=== PATIENT | male | born 1960 | race Caucasian/White ===

== ENCOUNTER 2018-04-12 13:09 | Inpatient (IN) ==
--- NOTE | 2018-04-12 13:44 | ED ---
HPI General Chief Complaint: Overdose Stated Complaint: overdose Time Seen by Provider: 04/12/18 13:25 Source: EMS Mode of arrival: EMS Limitations: no limitations and altered mental status History of Present Illness HPI Narrative: Patient is a 57-year-old male who is brought to the emergency room via EMS after he had a heroin drug overdose. Patient admitted to using IV heroin today, his friend found him unresponsive in his tent. When EMS arrived on scene, he had agonal respirations, bagged mouth ventilation was performed. When an IV line was estabilished, he was given narcan 0.4 mg IV. Patient became alert and oriented x 3, denies si/hi. Related Data Home Medications Medication Instructions Recorded Confirmed No Known Home Medications 01/01/18 04/12/18 Allergies Allergy/AdvReac Type Severity Reaction Status Date / Time No Known Allergies Allergy Verified 04/12/18 13:20 Review of Systems ROS: all other systems reviewed are negative [facility] Medical History Medical History COPD (chronic obstructive pulmonary disease) (Acute) Daily consumption of alcohol (Acute) Hepatitis C (Acute) Hypertension (Acute) IV drug abuse (Acute) Torn meniscus (Acute) Social History Social History Substance History: Active Abuse Second Hand Smoke Exposure: Yes Smoking Status: Current every day smoker Tobacco Type: Cigarettes How Often Do You Have a Drink Containing Alcohol: 4 or more times a week Recent Travel in [facility] within the Last 8 Weeks: No Recent Out of Country Travel within the Last 8 Weeks: No Substance Abuse Detail Heroin: Substance Use Status: Active Immunization History Tetanus Immunization: Unsure Exam Narrative Exam Narrative: GENERAL: Mild distress, disheveled appearing SKIN: Focused skin assessment warm/dry. HEAD: Atraumatic. Normocephalic. EYES: Pupils equal and round. No scleral icterus. No injection or drainage. ENT: No nasal bleeding or discharge. Mucous membranes pink and moist. NECK: Trachea midline. No JVD. CARDIOVASCULAR: Regular rate and rhythm. No murmur appreciated. RESPIRATORY: No accessory muscle use. Clear to auscultation. Breath sounds equal bilaterally. GASTROINTESTINAL: Abdomen soft, non-tender, nondistended. Hepatic and splenic margins not palpable. MUSCULOSKELETAL: No obvious deformities. No clubbing. No cyanosis. No edema. NEUROLOGICAL: Awake and alert. No obvious cranial nerve deficits. Motor grossly within normal limits. Normal speech. PSYCHIATRIC:Flat mood and affect; insight and judgment normal, denies si/hi Course Reevaluation(s) Reevaluation #1: Patient re-evaluated, patient apneic and difficult to arouse, he currently is requiring another dose of narcan 0.4mg Time: 14:44 Initial Documented Vital Signs Pulse Rate 98 H 04/12/18 13:11 Respiratory Rate 25 H 04/12/18 13:11 Blood Pressure 136/79 04/12/18 13:11 Pulse Oximetry 98 04/12/18 13:11 Last Documented Vital Signs Pulse Rate 77 04/12/18 15:20 Respiratory Rate 20 04/12/18 15:20 Blood Pressure 118/75 04/12/18 15:20 Pulse Oximetry 99 04/12/18 15:20 Critical Care Time Critical Care Time: Yes Total Critical Care Time: 30 Attestation: Aggregate critical care time was 30 minutes. Time to perform other separately billable procedures was not included in the critical care time. My time did not include minutes spent treating any other patients simultaneously or on activities that did not directly contribute to the patient's treatment. The services I provided to this patient were to treat and/or prevent clinically significant deterioration that could result in: , permanent disability, acute respiratory failure, worsening clinical condition, anoxic brain injury I provided critical care services requiring my management, as noted below: Chart data review, documentation time, medication orders and management, vital sign assessments/reviewing monitor data, ordering and reviewing lab tests, ordering and interpreting/reviewing x-rays and diagnostic studies, care of the patient and discussion of the patient with the admitting physicians. Sign Out Sign Out Data: Patient Sign Out occurred on 04/12/18 at 15:16. Patient's care was discussed, and care was transferred from Catherine Esquivel to Fredis Myles MD. Sign Out Comment: Patient signed out to Dr. Myles at change of shift, patient is an accidental heroin overdose. He received a dose of narcan by ems as well as in the ER. plan for observation, he will require admission if he requires another dose of narcan. Last updated by Catherine Esquivel at 04/12/18 14:48 Post-Handoff Eval: The patient was signed out to me at the beginning of my shift at approximately 3 :00 PM. Please refer to previous provider notes. This is a 57-year-old male who presents by ambulance for an apparent unintentional heroin overdose. On scene the patient was apneic with depressed mental status. IV was established, and the patient received 0.4 mg of IV Narcan by EMS with improvement in mentation and respiratory status. Just prior to signout the patient required another dose of 0.4 mg of IV Narcan. On my assessment the patient is with depressed mental status, breathing at a rate of about 10 breaths/min, protecting his airway, arouses to verbal and painful stimuli, moves all extremities, admits to unintentionally overdosing on heroin. He denies any other illicit drugs. He denies alcohol. He denies any physical complaints. About an hour after signout the patient's mentation gradually declined. He is still arousable to verbal stimuli, however has significantly depressed mental status, breathing at a rate of about 10 breaths/ min. Pupils are pinpoint. No signs of trauma. ABG on 4 L nasal cannula shows pH 7.26, PCO2 62, PO2 95, carboxyhemoglobin 6.2%. Basic labs will be performed , CT head will be performed, and the patient will be started on a Narcan drip. 4:15 PM: The patient was evaluated at the bedside by marketing development specialist Dr. Machado who will admit the patient to the marketing development specialist service. Labs and CT head pending at time of admission. Medical Decision Making MDM Narrative Medical decision making narrative: During the course of the patients emergency department visit, the patients history, examination, and differential diagnosis were reviewed with the patient. The patient was placed on a patient monitor with oximetry and frequent blood pressure monitoring. The patient had an IV access obtained, IVF administered The patient was initially provided with iv narcan 0.4 by ems. Plan to observe patient Patient denies si/hi - plan to observe patient Medical Screen Exam Complete: Yes Emergency Medical Condition: Yes Differential Diagnosis Differential Diagnosis: drug overdose Lab Data Lab Results 04/12/18 Range/Units 15:37 Puncture Site Right radial Patient Temperature 98.6 O2 Saturation 91 (90-100) % ABG pH 7.26 L* (7.380-7.420) ABG pCO2 62 H* (38-42) mmHg ABG pO2 95 (61-120) mmHg ABG HCO3 27 H (22-26) mmol/L ABG O2 Content 14.7 (12.0-20.0) Vol % ABG Base Excess 0.4 (-2-2) mmol/L ABG Methemoglobin 0.6 (0-2) % Manuel Test Present Hemoglobin 11.5 L (12.0-16.0) G/DL Carboxyhemoglobin 6.2 H* (0-4) % O2 Delivery Device Nasal cannula Liter Flow 4.00 L/M Critical Value Yes Discharge Plan Discharge Disposition Patient Disposition: 30 Still Patient Discharge Condition Condition: Fair Discharge Details Diagnosis: Drug overdose, Altered mental status Physicians Team ED Provider: Fredis Myles Primary Care Provider: Primary Care Enid Infante Rxs /Orders / Referrals /Forms Prescriptions: No Action No Known Home Medications RF: 0 Discharge Instructions Print Language: German Patient Printed Instructions: Adult Overdose (ED) Additional Instructions: Stop using drugs! Follow up with your primary care doctor Return to the ER as needed Discharge Interventions Interventions: Vital Signs Last Done: 04/12/18 15:20 Status ED Status: With Doctor
[2018-04-12] MEDS: Sod Chloride 0.9% Inj 1,000 ML IV.SIG SCH ×2 (14:10→15:10)
[2018-04-12] MEDS ORDERED: Naloxone Inj 0.4 MG/ML Vial IV.PUSH ONE ×2 (14:39→15:56)
[2018-04-12 16:11] LABS: ABG Base Excess 0.4 mmol/L (-2-2); ABG PCO2 62 mmHg (38-42); ABG PO2 95 mmHg (61-120)
--- NOTE | 2018-04-12 16:37 | CT ---
EXAM DATE: 04/12/2018 4:03 PM EDT AGE/SEX: 57 years / Male INDICATIONS: Altered Mental Status CLINICAL DATA: This is the patient's initial encounter. Patient reports that signs and symptoms have been present for 1 day and indicates a pain score of 0/10. MEDICAL/SURGICAL HISTORY: Chronic obstructive pulmonary disease. Hepatitis C. Hypertension. None. RADIATION DOSE: 38.61 CTDI (mGy) COMPARISON: No prior exams available for comparison. TECHNIQUE: CT of the head without contrast. Using automated exposure control and adjustment of the mA and/or kV according to patient size, radiation dose was kept as low as reasonably achievable to ob tain optimal diagnostic quality images. DICOM format image data is available electronically for revi ew and comparison. FINDINGS: Cerebrum: The ventricles are normal for age. No evidence of midline shift, mass lesion, hemorrhage or acute infarction. No extraaxial fluid collections are seen. Posterior Fossa: The cerebellum and brainstem are intact. The 4th ventricle is midline. The cerebe llopontine angle is unremarkable. Extracranial: The visualized portion of the orbits is intact. Skull: The calvaria is intact. No evidence of skull fracture. CONCLUSION: 1. Negative CT Head non contrast. . Electronically signed by: Jason Hartmann MD 04/12/2018 4:35 PM EDT
[2018-04-12] MEDS ORDERED: Bisacodyl 10 MG Supp RECTAL PRN (17:00)
[2018-04-12] MEDS ORDERED: Sodium Phosphate Inj 30 MMOL in Sodium Chlor 0.9% Inj 250 ML IV.SIG PRN (17:00)
[2018-04-12] MEDS ORDERED: Potassium Chlor 40 mEq Premix 40 MEQ/100 ML PIGGYBACK IV.SIG PRN ×2 (17:00)
[2018-04-12] MEDS ORDERED: Magnesium Sulfate Inj 4 GM in Sodium Chlor 0.9% Inj 92 ML IV.SIG PRN (17:00)
[2018-04-12] MEDS ORDERED: Potassium Phosphate Inj 30 MMOL in Sodium Chlor 0.9% Inj 250 ML IV.SIG PRN (17:00)
[2018-04-12] MEDS ORDERED: Potassium Chloride 25 MEQ Effervescent Tablet PO PRN (17:00)
[2018-04-12] MEDS ORDERED: Potassium Phosphate 500 MG Soluble Tablet PO PRN (17:00)
[2018-04-12] MEDS ORDERED: Magnesium Sulfate Inj 2 GM in Sodium Chlor 0.9% Inj 96 ML IV.SIG PRN (17:00)
[2018-04-12] MEDS ORDERED: Potassium Chlor 20 mEq Premix 20 MEQ/100 ML PIGGYBACK IV.SIG PRN ×2 (17:00)
[2018-04-12] MEDS ORDERED: Magnesium Oxide 400 MG Tablet PO PRN (17:00)
--- NOTE | 2018-04-12 17:09 | P.HPCC ---
History of Present Illness Service: Critical Care Medicine Primary Care Physician: No Primary Care Physician History of Present Illness: 57yM known iv opiate abuse patient presents with acute altered mentation and pin -point pupils. given iv narcan with improved mental status, but then has progressively become somnolent again. second dose of narcan again with good effect, but then somnolent again. started on naloxone infusion. on my evaluation , patient moves all extremities and purposeful to noxious stimuli, non-focal, but very somnolent, bradypneic, with pin-point pupils. ABG consistent with acute respiratory acidosis. ROS unobtainable. Inpatient Certification: I certify that the inpatient services were ordered in accordance with Medicare regulations governing the order. This includes certification that hospital inpatient services are reasonable and necessary and in the case of services not specified as inpatient-only under 42 CFR 419.22(n), that they are appropriately provided as inpatient services in accordance to with the 2-midnight benchmark under 43 CFR 412.3(e) Estimated Total Length of Stay (Days): 4 Plans for Post Hospital Care: Not yet determined Review of Systems unobtainable due to mental status PMFSH - History History Provided By: Medical Record - Medical / Surgical Hx Neg / Unobtainable Medical Problems Denied: Unable to Obtain Surgical History: Unable to Obtain - Medical History Medical History: Medical History (Last Reviewed 04/12/18 @ 17:05 by Yandel Machado MD) COPD (chronic obstructive pulmonary disease) Daily consumption of alcohol Hepatitis C Hypertension IV drug abuse Torn meniscus - Social History I have reviewed the patient's Social History: Yes - Tobacco History Second Hand Smoke Exposure: Yes Tobacco Use In Past 30 Days: Yes Smoking Status: Current every day smoker Tobacco Type: Cigarettes - Alcohol History How Often Do You Have a Drink Containing Alcohol: 4 or more times a week - Substance Use History Substance History: Active Abuse - Substance Use Type Heroin Status: Active - Travel History Recent Travel in the [place] Within the Last 8 Weeks: No Recent Travel Out of the Country Within the Last 8 Weeks: No - Immunization History Tetanus Immunization: Unsure Medications and Allergies Active Medications: Active Medications Sodium Chloride (Ns Inj) 1,000 mls @ 0 mls/hr IV.SIG BOLUS [facility] Stop: 04/13/18 13:46 Last Infusion: 04/12/18 16:39 Dose: Infused Naloxone HCl 4 mg/ Dextrose 250 mls @ 12.5 mls/hr IV.CONT TITRATE PRN; Protocol PRN Reason: Ordered RASS Sodium Chloride (Ns Flush) 2 ml IV.FLUSH PRN PRN PRN Reason: FLUSH AFTER USING IV ACCESS Allergies Allergy/AdvReac Type Severity Reaction Status Date / Time No Known Allergies Allergy Verified 04/12/18 13:20 Home Medications Medication Instructions Recorded Confirmed Type No Known Home Medications 01/01/18 04/12/18 History Results - Imaging Impressions Head CT 04/12/18 15:57 CONCLUSION: 1. Negative CT Head non contrast. . Exam Vital signs: Vital Signs 04/12/18 13:11 04/12/18 13:15 04/12/18 13:26 Pulse Rate 98 H 93 H 82 Respiratory Rate 25 H 16 14 Blood Pressure 136/79 136/79 132/77 Pulse Oximetry 98 98 97 04/12/18 14:10 04/12/18 14:41 04/12/18 15:20 Pulse Rate 80 84 77 Respiratory Rate 22 20 Blood Pressure 116/63 118/75 Pulse Oximetry 96 100 99 Intake & Output 04/11/18 04/12/18 04/12/18 18:59 06:59 18:59 Intake Total 1999 Balance 1999 Weight 95.254 kg Intake: IV 1999 NS Inj 1,000 ML @ Wide Open IV. 1999 SIG BOLUS [facility] Rx#:[id number] Narrative: GENERAL: Middle-age male who appears much older than stated age, lying in bed, very somnolent, only arousable to deep sternal rub HEENT: Normocephalic. Atraumatic. Pupils pinpoint, equal, round, reactive, conjugate. Mucous membranes are moist NECK: Trachea is midline. There is no JVD. CHEST: Bradypneic. equal chest rise. clear. CARDIOVASCULAR: Normal rate, rhythm. Sinus. ABDOMEN: Soft, nontender, nondistended. No guarding. MUSCULOSKELETAL: Pulses 2+. No peripheral edema. Multiple small areas of scabbing concerning for small peripheral abscesses in various stages of healing. Small linear scars in the upper extremities concerning for track prado. NEUROLOGICAL: RASS -3/-4. Arouses to deep sternal rub. Protect airway. Positive cough. Positive gag. Purposeful when aroused. Withdraws x4. Does not follow commands. Caprini VTE Risk Assessment Caprini VTE Risk Assessment: Moderate/High Risk (score >= 2) Caprini Risk Assessment Model: Point Value = 1 Point Value = 2 Point Value = 3 Point Value = 5 Age 41-60 Minor surgery BMI > 25 kg/m2 Swollen legs Varicose veins or History of unexplained or recurrent spontaneous Oral contraceptives or hormone replacement Sepsis (< 1 month) Serious lung disease, including pneumonia (< 1 month) Abnormal pulmonary function Acute myocardial infarction Congestive heart failure (< 1 month) History of inflammatory bowel disease Medical patient at bed rest Age 61-74 Arthroscopic surgery Major open surgery (> 45 min) Laparoscopic surgery (> 45 min) Malignancy Confined to bed (> 72 hours) Immobilizing plaster cast Central venous access Age >= 75 History of VTE Family history of VTE Factor V Leiden Prothrombin [id number] Lupus anticoagulant Anticardiolipin antibodies Elevated serum homocysteine Heparin-induced thrombocytopenia Other congenital or acquired thrombophilia Stroke (< 1 month) Elective arthroplasty Hip, pelvis, or leg fracture Acute spinal cord injury (< 1 month) Prophylaxis Regimen: Total Risk Factor Score Risk Level Prophylaxis Regimen 0-1 Low Early ambulation 2 Moderate Order ONE of the following: *Sequential Compression Device (SCD) *Heparin 5000 units SQ BID 3-4 Higher Order ONE of the following medications: *Heparin 5000 units SQ TID *Enoxaparin/Lovenox 40 mg SQ daily (WT < 150 kg, CrCl > 30 mL/min) *Enoxaparin/Lovenox 30 mg SQ daily (WT < 150 kg, CrCl > 10-29 mL/min) *Enoxaparin/Lovenox 30 mg SQ BID (WT < 150 kg, CrCl > 30 mL/min) AND/OR *Sequential Compression Device (SCD) 5 or more Highest Order ONE of the following medications: *Heparin 5000 units SQ TID (Preferred with Epidurals) *Enoxaparin/Lovenox 40 mg SQ daily (WT < 150 kg, CrCl > 30 mL/min) *Enoxaparin/Lovenox 30 mg SQ daily (WT < 150 kg, CrCl > 10-29 mL/min) *Enoxaparin/Lovenox 30 mg SQ BID (WT < 150 kg, CrCl > 30 mL/min) AND *Sequential Compression Device (SCD) Assessment and Plan - Assessment and Plan Plan: Assessment: 57-year-old male with acute toxic encephalopathy secondary to what appears to be IV opiate overdose. Agree with admit to ICU for naloxone infusion. Active Problems: Acute toxic encephalopathy Acute opiate overdose Opiate dependence IV drug abuse Acute respiratory acidosis Acute hypoxic and hypercarbic respiratory distress Plan: admit to ICU naloxone drip urine drug screen f/u tylenol, ASA levels frequent neuro checks thiamine, MVI mivf LR @ 84 cc/hr CBC, CMP, coag, mag, phos, lactic acid head CT negative for acute disease watch for signs of opiate withdraw. if mental status improves, can advance diet SCDs lovenox pepcid po
[2018-04-12 17:29] LABS: Baso # (Auto) 0.1 th/mm3 (0.0-0.2); Baso % (Auto) 0.3 % (0.0-2.0); Eos # (Auto) 0.3 th/mm3 (0.0-0.4); Eos % (Auto) 1.5 % (0.0-4.0); Hematocrit 34.6 % (39.0-51.0); Hemoglobin 11.6 gm/dL (13.0-17.0); Mean Corpuscular HGB Conc 33.4 % (32.0-36.0); Mean Corpuscular Hemoglobin 33.1 pg (27.0-34.0); Mono # (Auto) 0.9 th/mm3 (0.0-0.9); Mono % (Auto) 5.2 % (0.0-8.0); Neut # (Auto) 14.9 th/mm3 (1.8-7.7); Platelet Count 143 th/mm3 (150-450); Red Blood Count 3.49 mil/mm3 (4.50-5.90); Red Cell Distribution Width 15.3 % (11.6-17.2); White Blood Count 17.1 th/mm3 (4.0-11.0)
[2018-04-12 17:38] LABS: INR 1.1 Ratio; Prothrombin Time 11.2 sec (9.8-11.6)
[2018-04-12 17:54] LABS: Albumin 2.6 g/dL (3.4-5.0); Anion Gap 2 meq/L (5-15); Aspartate Aminotransferase 25 U/L (15-37); Blood Urea Nitrogen 19 mg/dL (7-18); Calcium 7.5 mg/dL (8.5-10.1); Carbon Dioxide 29.4 meq/L (21.0-32.0); Chloride 110 meq/L (98-107); Glomerular Filtration Rate Greater Than 89 mL/min (>89); Glucose,Random 98 mg/dL (74-106); Magnesium 2.1 mg/dL (1.5-2.5); Sodium 141 meq/L (136-145)
[2018-04-12 18:03] LABS: Alanine Aminotransferase 18 U/L (12-78); Alkaline Phosphatase 80 U/L (45-117); Phosphorus 2.8 mg/dL (2.5-4.9); Thyroid Stimulating Hormone 0.672 uIU/mL (0.358-3.740); Total Protein 5.9 g/dL (6.4-8.2)
[2018-04-12 18:23] LABS: Creatine Kinase 87 U/L (39-308)
[2018-04-12] MEDS: Enoxaparin Inj 40 MG/0.4 ML Syringe SQ SCH (19:46)
[2018-04-12] MEDS: Multivitamin Inj 10 ML, Thiamine Inj 100 MG, Folic Acid Inj 1 MG in Sodium Chlor 0.9% I... IV.SIG SCH (21:18)
[2018-04-12] MEDS: Polyethylene Glycol 3350 17 GM Packet PO SCH (21:52)
[2018-04-12] MEDS: Famotidine 20 MG Tablet PO SCH (21:52)
[2018-04-12] MEDS: Senna/Docusate Sodium 8.6/50 MG Tablet PO SCH (21:52)
[2018-04-13] MEDS: Chlorhexidine Gluconate 2% 1 Pack (2 Cloths) TOPICAL SCH (03:55)
[2018-04-13] MEDS ORDERED: Chlorhexidine Gluconate 2% 1 Pack (2 Cloths) TOPICAL PRN (04:00)
[2018-04-13 04:50] LABS: ABG Base Excess 1.4 mmol/L (-2-2); ABG PCO2 42 mmHg (38-42); ABG PO2 58 mmHG (61-120)
[2018-04-13 06:40] LABS: Baso # (Auto) 0.1 th/mm3 (0.0-0.2); Baso % (Auto) 0.5 % (0.0-2.0); Eos # (Auto) 0.4 th/mm3 (0.0-0.4); Eos % (Auto) 2.9 % (0.0-4.0); Hematocrit 35.3 % (39.0-51.0); Hemoglobin 11.6 gm/dL (13.0-17.0); Lymph # (Auto) 1.4 th/mm3 (1.0-4.8); Lymph % (Auto) 10.8 % (9.0-44.0); Mean Corpuscular HGB Conc 32.8 % (32.0-36.0); Mean Corpuscular Hemoglobin 32.9 pg (27.0-34.0); Mean Corpuscular Volume 100.3 fL (80.0-100.0); Mean Platelet Volume 8.8 fL (7.0-11.0); Mono # (Auto) 0.6 th/mm3 (0.0-0.9); Mono % (Auto) 4.9 % (0.0-8.0); Neut # (Auto) 10.5 th/mm3 (1.8-7.7); Neut % (Auto) 80.9 % (16.0-70.0); Platelet Count 132 th/mm3 (150-450); Red Blood Count 3.52 mil/mm3 (4.50-5.90); Red Cell Distribution Width 15.4 % (11.6-17.2)
[2018-04-13 07:12] LABS: Magnesium 1.9 mg/dL (1.5-2.5); Phosphorus 2.1 mg/dL (2.5-4.9)
[2018-04-13] MEDS: Senna/Docusate Sodium 8.6/50 MG Tablet PO SCH ×2 (08:21→20:17)
[2018-04-13] MEDS: Enoxaparin Inj 40 MG/0.4 ML Syringe SQ SCH (08:21)
[2018-04-13] MEDS: Famotidine 20 MG Tablet PO SCH ×2 (08:22→20:16)
[2018-04-13] MEDS: Polyethylene Glycol 3350 17 GM Packet PO SCH ×2 (08:22→20:16)
[2018-04-13] MEDS: Potassium Phosphate 500 MG Soluble Tablet PO PRN ×4 (08:55→23:38)
--- NOTE | 2018-04-13 09:43 | P.PNCC ---
Subjective Subjective Remarks/Hospital Course: 04/12: 57yM known iv opiate abuse patient presents with acute altered mentation and pin-point pupils. given iv narcan with improved mental status, but then has progressively become somnolent again. second dose of narcan again with good effect, but then somnolent again. started on naloxone infusion. on my evaluation , patient moves all extremities and purposeful to noxious stimuli, non-focal, but very somnolent, bradypneic, with pin-point pupils. ABG consistent with acute respiratory acidosis. ROS unobtainable. 04/13: Narcan drip stopped this morning. Drowsy, easily arousable, knows he is in the hospital. Knows it is March 2018. Objective Vital Signs / I&O: Vital Signs 04/12/18 13:11 04/12/18 13:15 04/12/18 13:26 Temperature Pulse Rate 98 H 93 H 82 Respiratory Rate 25 H 16 14 Blood Pressure 136/79 136/79 132/77 Pulse Oximetry 98 98 97 04/12/18 14:10 04/12/18 14:41 04/12/18 15:20 Temperature Pulse Rate 80 84 77 Respiratory Rate 22 20 Blood Pressure 116/63 118/75 Pulse Oximetry 96 100 99 04/12/18 17:10 04/12/18 18:48 04/12/18 19:26 Temperature 96.4 F L Pulse Rate 75 78 69 Respiratory Rate 12 16 16 Blood Pressure 106/55 L 109/69 Pulse Oximetry 95 96 98 04/12/18 20:00 04/12/18 21:00 04/12/18 22:00 Temperature 96.7 F L Pulse Rate 66 62 62 Respiratory Rate 16 14 16 Blood Pressure 96/65 L 106/68 98/62 L Pulse Oximetry 100 99 100 04/12/18 23:00 04/13/18 00:00 04/13/18 01:00 Temperature 98.0 F Pulse Rate 62 65 66 Respiratory Rate 17 18 16 Blood Pressure 106/69 104/70 105/66 Pulse Oximetry 99 98 96 04/13/18 02:00 04/13/18 03:00 04/13/18 04:00 Temperature 98.3 F Pulse Rate 62 66 69 Respiratory Rate 19 29 H 20 Blood Pressure 107/71 125/69 120/77 Pulse Oximetry 94 L 96 98 04/13/18 04:57 04/13/18 05:00 04/13/18 06:00 Temperature Pulse Rate 59 L 56 L 53 L Respiratory Rate 20 18 16 Blood Pressure 137/75 140/73 Pulse Oximetry 95 97 04/13/18 07:00 04/13/18 08:00 04/13/18 08:05 Temperature 98.4 F Pulse Rate 55 L 48 L Respiratory Rate 23 29 H Blood Pressure 120/89 117/83 Pulse Oximetry 97 94 L 97 04/13/18 08:10 04/13/18 09:00 Temperature Pulse Rate 52 L 55 L Respiratory Rate 23 15 Blood Pressure 117/78 Pulse Oximetry 97 Intake & Output 04/12/18 04/13/18 04/13/18 18:59 06:59 18:59 Intake Total 1999 1511.2 / 1511.2 Output Total 750 / 750 Balance 1999 761.2 / 761.2 Weight 95.254 kg 86.6 kg Intake: IV 1999 1511.2 / 1511.2 LR 1000 mL Inj 1,000 ML @ 84 1000 / 1000 mls/hr IV.CONT .[id number] [facility] Rx# :[id number] MVI-12 Inj 10 ML Thiamine Inj 511.2 / 511.2 100 MG Folvite Inj 1 MG In NS Inj 500 ML @ 125 mls/hr IV.SIG Q24H [facility] Rx#:[id number] NS Inj 1,000 ML @ Wide Open IV. 1999 SIG BOLUS [facility] Rx#:[id number] Oral 0 / 0 Output: Urine 750 / 750 Other: # Incontinent Voids 3 Result Diagrams: 04/13/18 05:20 04/12/18 16:50 Objective Remarks: GENERAL: Middle-age male who appears much older than stated age, lying in bed, very somnolent, only arousable to deep sternal rub HEENT: Normocephalic. Atraumatic. Pupils pinpoint, equal, round, reactive, conjugate. Mucous membranes are moist NECK: Trachea is midline. There is no JVD. CHEST: Bradypneic. equal chest rise. clear. CARDIOVASCULAR: Normal rate, rhythm. Sinus. ABDOMEN: Soft, nontender, nondistended. No guarding. MUSCULOSKELETAL: Pulses 2+. No peripheral edema. Multiple small areas of scabbing concerning for small peripheral abscesses in various stages of healing. Small linear scars in the upper extremities concerning for track prado. NEUROLOGICAL: Drowsy, easily arousable, oriented x3 moving all 4 extremities, following commands. Assessment and Plan - Assessment and Plan Plan: Assessment: 57-year-old male with acute toxic encephalopathy secondary to what appears to be IV opiate overdose. Active Problems: Acute toxic encephalopathy Acute opiate overdose Opiate dependence IV drug abuse Acute respiratory acidosis Acute hypoxic and hypercarbic respiratory distress Plan: Stop naloxone drip this morning and follow neuro status frequent neuro checks thiamine, MVI mivf LR @ 84 cc/hr head CT negative for acute disease watch for signs of opiate withdraw. if mental status improves, can advance diet SCDs lovenox pepcid po Consult and transfer to hospitalist service for further medical management
[2018-04-13 18:55] LABS: Potassium 3.7 meq/L (3.5-5.1)
[2018-04-13] MEDS: Multivitamin Inj 10 ML, Thiamine Inj 100 MG, Folic Acid Inj 1 MG in Sodium Chlor 0.9% I... IV.SIG SCH (20:15)
--- NOTE | 2018-04-13 20:41 | ECG ---
Date Performed: 04/12/2018 Time Performed: 13:12:29 PTAGE: 57 years EKG: Sinus rhythm POSSIBLE LEFT ATRIAL ENLARGEMENT LEFT ANTERIOR FASCICULAR BLOCK ABNORMAL ECG PREVIOUS TRACING : 01/01/2018 22.15 Since the previous tracing, no significant change noted DOCTOR: Evonne Mallory Interpretating Date/Time 04/13/2018 20:40:39
[2018-04-14] MEDS: Chlorhexidine Gluconate 2% 1 Pack (2 Cloths) TOPICAL SCH (03:23)
[2018-04-14 05:00] LABS: ABG Base Excess 3.4 mmol/L (-2-2); ABG PCO2 39 mmHg (38-42); ABG PO2 73 mmHG (61-120)
[2018-04-14] MEDS: Enoxaparin Inj 40 MG/0.4 ML Syringe SQ SCH (08:11)
[2018-04-14] MEDS: Senna/Docusate Sodium 8.6/50 MG Tablet PO SCH ×2 (08:12→20:03)
[2018-04-14] MEDS: Famotidine 20 MG Tablet PO SCH ×2 (08:12→20:03)
[2018-04-14] MEDS: Polyethylene Glycol 3350 17 GM Packet PO SCH ×2 (08:15→20:02)
[2018-04-14 14:54] LABS: Anion Gap 8 meq/L (5-15); Blood Urea Nitrogen 8 mg/dL (7-18); Calcium 7.6 mg/dL (8.5-10.1); Carbon Dioxide 24.9 meq/L (21.0-32.0); Chloride 108 meq/L (98-107); Glomerular Filtration Rate Greater Than 89 mL/min (>89); Glucose,Random 134 mg/dL (74-106); Magnesium 1.7 mg/dL (1.5-2.5); Phosphorus 2.5 mg/dL (2.5-4.9); Potassium 3.7 meq/L (3.5-5.1)
[2018-04-14 14:55] LABS: Sodium 141 meq/L (136-145)
[2018-04-14] MEDS ORDERED: Mag Sulf 1 gm/100 ml Premix 100 ML IV.SIG ONE (15:16)
--- NOTE | 2018-04-14 15:18 | P.PN ---
Subjective Interval history: Logistic Specialist Notes: 04/12: 57yM known iv opiate abuse patient presents with acute altered mentation and pin-point pupils. given iv narcan with improved mental status, but then has progressively become somnolent again. second dose of narcan again with good effect, but then somnolent again. started on naloxone infusion. on my evaluation , patient moves all extremities and purposeful to noxious stimuli, non-focal, but very somnolent, bradypneic, with pin-point pupils. ABG consistent with acute respiratory acidosis. ROS unobtainable. 04/13: Narcan drip stopped this morning. Drowsy, easily arousable, knows he is in the hospital. Knows it is March 2018. Hospitalist Notes: 04/14: Physical Exam Vital signs: Vital Signs 04/13/18 15:00 04/13/18 16:00 04/13/18 17:00 Temperature 98.7 F Pulse Rate 62 89 80 Respiratory Rate 20 23 21 Blood Pressure 138/74 102/59 L 111/56 L Pulse Oximetry 95 95 89 L 04/13/18 17:53 04/13/18 18:00 04/13/18 19:00 Temperature Pulse Rate 80 80 80 Respiratory Rate 22 15 Blood Pressure 120/68 117/69 Pulse Oximetry 94 L 94 L 04/13/18 19:42 04/13/18 20:00 04/13/18 20:03 Temperature 99 F Pulse Rate 79 79 Respiratory Rate 16 16 Blood Pressure 123/75 123/75 Pulse Oximetry 96 96 95 04/13/18 21:00 04/13/18 22:00 04/13/18 23:00 Temperature Pulse Rate 75 78 71 Respiratory Rate 30 H 17 17 Blood Pressure Pulse Oximetry 96 98 97 04/14/18 00:00 04/14/18 00:15 04/14/18 01:00 Temperature 97.9 F Pulse Rate 64 67 73 Respiratory Rate 23 20 24 Blood Pressure 134/84 120/75 Pulse Oximetry 95 97 95 04/14/18 01:01 04/14/18 02:00 04/14/18 03:00 Temperature Pulse Rate 73 69 69 Respiratory Rate 25 H 25 H 28 H Blood Pressure 120/75 143/90 H 137/87 Pulse Oximetry 95 97 96 04/14/18 04:00 04/14/18 04:57 04/14/18 05:00 Temperature Pulse Rate 71 78 72 Respiratory Rate 26 H 16 23 Blood Pressure 138/92 H 139/97 H Pulse Oximetry 96 96 04/14/18 06:00 04/14/18 07:00 04/14/18 08:00 Temperature 98.1 F Pulse Rate 56 L 56 L 52 L Respiratory Rate 23 21 20 Blood Pressure 149/86 H 122/69 120/73 Pulse Oximetry 97 95 96 04/14/18 09:00 04/14/18 09:01 04/14/18 09:39 Temperature Pulse Rate 46 L 85 Respiratory Rate 22 34 H Blood Pressure 124/72 Pulse Oximetry 99 98 96 04/14/18 10:00 04/14/18 11:00 04/14/18 12:00 Temperature 98.3 F Pulse Rate 54 L 54 L 78 Respiratory Rate 22 19 39 H Blood Pressure 135/79 141/67 H 134/88 Pulse Oximetry 97 97 94 L 04/14/18 12:09 04/14/18 14:00 Temperature Pulse Rate 54 L 53 L Respiratory Rate 26 H Blood Pressure 134/88 Pulse Oximetry 98 Intake & Output 04/13/18 04/14/18 04/14/18 18:59 06:59 18:59 Intake Total 2280 / 2280 1011.2 / 1011.2 1000 / 1000 Output Total 1000 / 1000 1550 / 1550 Balance 1280 / 1280 -538.8 / -538.8 1000 / 1000 Weight 86.4 kg Intake: IV 1000 / 1000 511.2 / 511.2 1000 / 1000 LR 1000 mL Inj 1,000 ML @ 84 1000 / 1000 1000 / 1000 mls/hr IV.CONT .[id number] [facility] Rx# :[id number] [id number] Inj 10 ML Thiamine Inj 511.2 / 511.2 100 MG Folvite Inj 1 MG In NS Inj 500 ML @ 125 mls/hr IV.SIG Q24H [facility] Rx#:[id number] Oral 1280 / 1280 500 / 500 Output: Urine 1000 / 1000 1550 / 1550 Other: # Voids 3 Date of Last Bowel Movement 04/13/18 04/13/18 04/13/18 # Bowel Movements 2 1 Narrative: GENERAL: Stable in his room, no acute distress. HEENT: Normocephalic. Atraumatic. NECK: Trachea is midline. There is no JVD. CHEST: Bradypneic. equal chest rise. clear. CARDIOVASCULAR: Normal rate, rhythm. Sinus. ABDOMEN: Soft, nontender, nondistended. No guarding. MUSCULOSKELETAL: NO clubbing, cyanosis or edema. NEUROLOGICAL: Alert and oriented x 3, no focal deficits. Results - Labs CBC & Chem 7: 04/13/18 05:20 04/14/18 14:10 Laboratory Results - last 24 hr 04/13/18 04/14/18 04/14/18 18:23 04:44 14:10 Puncture Site Left radial Patient Temperature 98.6 O2 Saturation 93 ABG pH 7.46 H ABG pCO2 39 ABG pO2 73 ABG HCO3 27 H ABG O2 Content 15.8 ABG Base Excess 3.4 H ABG Methemoglobin 1.4 Manuel Test Present Hemoglobin 12.0 Carboxyhemoglobin 1.0 Inspired O2 21 Critical Value No Sodium 141 Potassium 3.7 3.7 Chloride 108 H Carbon Dioxide 24.9 Anion Gap 8 BUN 8 Creatinine 0.70 Estimated GFR Greater than 89 Random Glucose 134 H Calcium 7.6 L Phosphorus 2.0 L 2.5 Magnesium 1.7 Assessment and Plan - Plan Assessment: 57-year-old male with acute toxic encephalopathy secondary to what appears to be IV opiate overdose. Acute toxic encephalopathy Acute opiate overdose Opiate dependence IV drug abuse strongly recommended to stop this behavior. Acute respiratory acidosis Acute hypoxic and hypercarbic respiratory distress Improved Electrolyte derangement replaced. Continue Neuro checks, Continue CIWA protocol, IV fluids Head CT negative for acute disease. the patient continue with some Bradycardia will continue to follow him today. following electrolytes. DVT prophylaxis with Lovenox and GI prophylaxis with Pepcid. not yet ready for transfer to the floor. Code Status: Full Code. Discussed Condition With: Patient and Nurse Miss Grove Discharge Planning: Expected for tomorrow.
[2018-04-14 16:48] LABS: Baso # (Auto) 0.1 th/mm3 (0.0-0.2); Baso % (Auto) 0.6 % (0.0-2.0); Eos # (Auto) 0.2 th/mm3 (0.0-0.4); Eos % (Auto) 2.9 % (0.0-4.0); Hematocrit 41.5 % (39.0-51.0); Lymph # (Auto) 1.5 th/mm3 (1.0-4.8); Lymph % (Auto) 17.5 % (9.0-44.0); Mean Corpuscular HGB Conc 33.8 % (32.0-36.0); Mean Corpuscular Hemoglobin 33.5 pg (27.0-34.0); Mean Corpuscular Volume 99.1 fL (80.0-100.0); Mean Platelet Volume 8.2 fL (7.0-11.0); Mono # (Auto) 0.9 th/mm3 (0.0-0.9); Mono % (Auto) 11.4 % (0.0-8.0); Neut # (Auto) 5.6 th/mm3 (1.8-7.7); Neut % (Auto) 67.6 % (16.0-70.0); Platelet Count 134 th/mm3 (150-450); Red Blood Count 4.19 mil/mm3 (4.50-5.90); Red Cell Distribution Width 15.1 % (11.6-17.2); White Blood Count 8.3 th/mm3 (4.0-11.0)
[2018-04-14 17:16] LABS: Platelet Morphology Normal (Normal)
[2018-04-14] MEDS: Multivitamin Inj 10 ML, Thiamine Inj 100 MG, Folic Acid Inj 1 MG in Sodium Chlor 0.9% I... IV.SIG SCH (19:57)
[2018-04-15] MEDS: Chlorhexidine Gluconate 2% 1 Pack (2 Cloths) TOPICAL SCH (03:37)
[2018-04-15 05:47] LABS: ABG Base Excess 2.1 mmol/L (-2-2); ABG PCO2 36 mmHg (38-42); ABG PO2 79 mmHG (61-120)
[2018-04-15 07:29] LABS: Baso % (Auto) 0.4 % (0.0-2.0); Eos # (Auto) 0.4 th/mm3 (0.0-0.4); Eos % (Auto) 4.5 % (0.0-4.0); Hematocrit 36.3 % (39.0-51.0); Hemoglobin 12.5 gm/dL (13.0-17.0); Lymph # (Auto) 1.9 th/mm3 (1.0-4.8); Lymph % (Auto) 21.5 % (9.0-44.0); Mean Corpuscular HGB Conc 34.6 % (32.0-36.0); Mean Corpuscular Hemoglobin 33.4 pg (27.0-34.0); Mean Corpuscular Volume 96.6 fL (80.0-100.0); Mean Platelet Volume 9.6 fL (7.0-11.0); Mono # (Auto) 0.8 th/mm3 (0.0-0.9); Neut # (Auto) 5.8 th/mm3 (1.8-7.7); Neut % (Auto) 64.6 % (16.0-70.0); Platelet Count 141 th/mm3 (150-450); Red Blood Count 3.75 mil/mm3 (4.50-5.90)
[2018-04-15 07:52] LABS: Magnesium 1.9 mg/dL (1.5-2.5); Phosphorus 3.4 mg/dL (2.5-4.9)
[2018-04-15 08:50] LABS: Lymphocytes 21 % (9-44); Monocytes 10 % (0-8); Myelocytes 1 % (0-0)
[2018-04-15 08:52] LABS: Platelet Morphology Normal (Normal)
[2018-04-15] MEDS: Polyethylene Glycol 3350 17 GM Packet PO SCH (08:53)
[2018-04-15] MEDS: Enoxaparin Inj 40 MG/0.4 ML Syringe SQ SCH (08:53)
[2018-04-15] MEDS: Famotidine 20 MG Tablet PO SCH (08:53)
[2018-04-15] MEDS: Senna/Docusate Sodium 8.6/50 MG Tablet PO SCH (08:54)
--- NOTE | 2018-04-15 11:07 | P.PNIM ---
Subjective Interval history: 04/12: 57yM known iv opiate abuse patient presents with acute altered mentation and pin-point pupils. given iv narcan with improved mental status, but then has progressively become somnolent again. second dose of narcan again with good effect, but then somnolent again. started on naloxone infusion. on my evaluation , patient moves all extremities and purposeful to noxious stimuli, non-focal, but very somnolent, bradypneic, with pin-point pupils. ABG consistent with acute respiratory acidosis. ROS unobtainable. 04/13: Narcan drip stopped this morning. Drowsy, easily arousable, knows he is in the hospital. Knows it is March 2018. 04-14 no NEED FOR NARCAN 04-15 IS AT HIS BASELINE AWAKE AND ALERT AND ORIENTED X3 WANTS TO GO HOME DW PATIENT NOT DOING ANY MORE DRUGS DC TO HOME TODAY Physical Exam Vital signs: Vital Signs 04/14/18 12:00 04/14/18 12:09 04/14/18 13:00 Temperature 98.3 F Pulse Rate 78 54 L 55 L Respiratory Rate 39 H 26 H 28 H Blood Pressure 134/88 134/88 142/90 H Pulse Oximetry 94 L 98 97 04/14/18 14:00 04/14/18 15:00 04/14/18 16:00 Temperature 98.8 F Pulse Rate 53 L 68 59 L Respiratory Rate 24 27 H 24 Blood Pressure 134/81 135/87 131/72 Pulse Oximetry 97 95 94 L 04/14/18 17:00 04/14/18 18:00 04/14/18 19:00 Temperature Pulse Rate 56 L 53 L 60 Respiratory Rate 23 24 20 Blood Pressure 135/77 120/57 L 136/88 Pulse Oximetry 98 95 95 04/14/18 19:45 04/14/18 20:00 04/14/18 21:00 Temperature 98.8 F Pulse Rate 60 56 L Respiratory Rate 25 H 17 Blood Pressure 137/80 141/91 H Pulse Oximetry 95 97 94 L 04/14/18 22:00 04/14/18 23:00 04/15/18 00:00 Temperature Pulse Rate 52 L 48 L 63 Respiratory Rate 16 15 23 Blood Pressure 136/86 139/91 H 121/59 L Pulse Oximetry 97 96 91 L 04/15/18 00:01 04/15/18 01:00 04/15/18 02:00 Temperature Pulse Rate 68 68 51 L Respiratory Rate 22 28 H 22 Blood Pressure 121/59 L 127/82 125/73 Pulse Oximetry 91 L 94 L 95 04/15/18 03:00 04/15/18 04:00 04/15/18 05:00 Temperature Pulse Rate 56 L 58 L 55 L Respiratory Rate 25 H 22 24 Blood Pressure 132/63 131/71 132/72 Pulse Oximetry 95 96 95 04/15/18 06:00 04/15/18 06:01 04/15/18 07:00 Temperature Pulse Rate 49 L 49 L 80 Respiratory Rate 25 H 24 22 Blood Pressure 132/59 L 120/84 Pulse Oximetry 96 95 95 04/15/18 07:57 04/15/18 08:00 04/15/18 09:00 Temperature 97.8 F Pulse Rate 53 L 57 L Respiratory Rate 24 31 H Blood Pressure 127/60 Pulse Oximetry 94 L 94 L 95 04/15/18 10:00 Temperature Pulse Rate 65 Respiratory Rate 25 H Blood Pressure Pulse Oximetry 94 L Intake & Output 04/14/18 04/15/18 04/15/18 18:59 06:59 18:59 Intake Total 2700 / 2700 1311.2 / 1311.2 Output Total 1900 / 1900 2600 / 2600 Balance 800 / 800 -1288.8 / -1288.8 Weight 86.7 kg Intake: IV 1100 / 1100 511.2 / 511.2 LR 1000 mL Inj 1,000 ML @ 84 1000 / 1000 mls/hr IV.CONT .[id number] [facility] Rx# :[id number] Magnesium Sulfate 1 gm/D5W 100 100 / 100 ml Premix 100 ML @ 100 mls/hr IV.SIG ONCE ONE Rx#:[id number] MVI-12 Inj 10 ML Thiamine Inj 511.2 / 511.2 100 MG Folvite Inj 1 MG In NS Inj 500 ML @ 125 mls/hr IV.SIG Q24H [facility] Rx#:[id number] Oral 1600 / 1600 800 / 800 Output: Urine 1900 / 1900 2600 / 2600 Other: Date of Last Bowel Movement 04/14/18 04/14/18 04/15/18 # Bowel Movements 3 Narrative: GENERAL: Stable in his room, no acute distress. HEENT: Normocephalic. Atraumatic. NECK: Trachea is midline. There is no JVD. CHEST: Bradypneic. equal chest rise. clear. CARDIOVASCULAR: Normal rate, rhythm. Sinus. ABDOMEN: Soft, nontender, nondistended. No guarding. MUSCULOSKELETAL: NO clubbing, cyanosis or edema. NEUROLOGICAL: Alert and oriented x 3, no focal deficits. Awake alert and oriented x3 talkative and cooperative in no acute distress Insight and judgment is good Mood and behavior is appropriate Results - Labs CBC & Chem 7: 04/15/18 06:53 04/14/18 14:10 Laboratory Results - last 24 hr 04/14/18 04/14/18 04/15/18 14:10 16:35 05:32 WBC 8.3 RBC 4.19 L Hgb 14.0 D Hct 41.5 MCV 99.1 MCH 33.5 MCHC 33.8 RDW 15.1 Plt Count 134 L MPV 8.2 Prelim Diff (Auto) Slide review pending Neut % (Auto) 67.6 Lymph % (Auto) 17.5 Johnston % (Auto) 11.4 H Eos % (Auto) 2.9 Baso % (Auto) 0.6 Neut # (Auto) 5.6 Lymph # (Auto) 1.5 Johnston # (Auto) 0.9 Eos # (Auto) 0.2 Baso # (Auto) 0.1 WBC Differential . Diff Scan Auto diff confirmed Seg Neuts % (Manual) Band Neuts % (Manual) Lymphocytes % (Manual) Monocytes % (Manual) Basophils % (Manual) Myelocytes % (Man) Abs Neuts (Manual) Differential Comment . Platelet Estimate Low L Platelet Morphology Normal Puncture Site Left radial Patient Temperature 98.6 O2 Saturation 94 ABG pH 7.47 H ABG pCO2 36 L ABG pO2 79 ABG HCO3 26 ABG O2 Content 16.5 ABG Base Excess 2.1 H ABG Methemoglobin 1.5 Manuel Test Present Hemoglobin 12.5 Carboxyhemoglobin 0.7 Inspired O2 21 Critical Value No Sodium 141 Potassium 3.7 Chloride 108 H Carbon Dioxide 24.9 Anion Gap 8 BUN 8 Creatinine 0.70 Estimated GFR Greater than 89 Random Glucose 134 H Calcium 7.6 L Phosphorus 2.5 Magnesium 1.7 04/15/18 04/15/18 06:53 06:53 WBC 9.0 RBC 3.75 L Hgb 12.5 L Hct 36.3 L MCV 96.6 MCH 33.4 MCHC 34.6 RDW 15.0 Plt Count 141 L MPV 9.6 Prelim Diff (Auto) Slide review pending Neut % (Auto) 64.6 Lymph % (Auto) 21.5 Johnston % (Auto) 9.0 H Eos % (Auto) 4.5 H Baso % (Auto) 0.4 Neut # (Auto) 5.8 Lymph # (Auto) 1.9 Johnston # (Auto) 0.8 Eos # (Auto) 0.4 Baso # (Auto) 0.0 WBC Differential Manual diff final Diff Scan Seg Neuts % (Manual) 66 Band Neuts % (Manual) 1 Lymphocytes % (Manual) 21 Monocytes % (Manual) 10 H Basophils % (Manual) 1 Myelocytes % (Man) 1 H Abs Neuts (Manual) 6.1 Differential Comment . Platelet Estimate Low L Platelet Morphology Normal Puncture Site Patient Temperature O2 Saturation ABG pH ABG pCO2 ABG pO2 ABG HCO3 ABG O2 Content ABG Base Excess ABG Methemoglobin Manuel Test Hemoglobin Carboxyhemoglobin Inspired O2 Critical Value Sodium Potassium Chloride Carbon Dioxide Anion Gap BUN Creatinine Estimated GFR Random Glucose Calcium Phosphorus 3.4 Magnesium 1.9 - Imaging ITS Impressions Head CT 04/12/18 15:57 CONCLUSION: 1. Negative CT Head non contrast. . - Procedures NONE Assessment and Plan - Plan Assessment: 57-year-old male with acute toxic encephalopathy secondary to what appears to be IV opiate overdose. Acute toxic encephalopathy Acute opiate overdose Opiate dependence IV drug abuse strongly recommended to stop this behavior. Acute respiratory acidosis Acute hypoxic and hypercarbic respiratory distress Improved Electrolyte derangement replaced. Continue Neuro checks, Continue CIWA protocol, IV fluids Head CT negative for acute disease. the patient continue with some Bradycardia will continue to follow him today. following electrolytes. DVT prophylaxis with Lovenox and GI prophylaxis with Pepcid. APPEARS AT BASE LINE DC TO HOME TODAY DW RN AND PT Code Status: FULL CODE Discussed Condition With: RN AND PT Discharge Planning: DC TO HOME TODAY
--- NOTE | 2018-04-15 11:22 | P.DS ---
Date of admission: 04/12/18 16:55 Primary care physician: No Primary Care Physician Attending physician on discharge: El Mg Anticipated date of discharge: 04/15/18 Brief History from admission: 57yM known iv opiate abuse patient presents with acute altered mentation and pin -point pupils. given iv narcan with improved mental status, but then has progressively become somnolent again. second dose of narcan again with good effect, but then somnolent again. started on naloxone infusion. on my evaluation , patient moves all extremities and purposeful to noxious stimuli, non-focal, but very somnolent, bradypneic, with pin-point pupils. ABG consistent with acute respiratory acidosis. ROS unobtainable. Patient update on day of discharge: 04/12: 57yM known iv opiate abuse patient presents with acute altered mentation and pin-point pupils. given iv narcan with improved mental status, but then has progressively become somnolent again. second dose of narcan again with good effect, but then somnolent again. started on naloxone infusion. on my evaluation , patient moves all extremities and purposeful to noxious stimuli, non-focal, but very somnolent, bradypneic, with pin-point pupils. ABG consistent with acute respiratory acidosis. ROS unobtainable. 04/13: Narcan drip stopped this morning. Drowsy, easily arousable, knows he is in the hospital. Knows it is March 2018. 04-14 no NEED FOR NARCAN 04-15 IS AT HIS BASELINE AWAKE AND ALERT AND ORIENTED X3 WANTS TO GO HOME DW PATIENT NOT DOING ANY MORE DRUGS DC TO HOME TODAY DS: Diagnosis - Discharge Diagnosis (1) IVDU (intravenous drug user) Status: Acute (2) Altered mental status Status: Acute (3) Drug overdose Status: Acute DS: Medications - Discharge Medications Prescriptions: famotidine 20 mg PO BID #60 tab magnesium oxide 800 mg PO DAILY PRN #60 tab PRN Reason: For Magnesium 1.2 - 1.6 mg/dL multivitamin with folic acid [Thera] 1 tab PO DAILY #30 tab thiamine HCl (vitamin B1) 100 mg PO DAILY #30 tab DS: Summary Hospital Course: 04/12: 57yM known iv opiate abuse patient presents with acute altered mentation and pin-point pupils. given iv narcan with improved mental status, but then has progressively become somnolent again. second dose of narcan again with good effect, but then somnolent again. started on naloxone infusion. on my evaluation , patient moves all extremities and purposeful to noxious stimuli, non-focal, but very somnolent, bradypneic, with pin-point pupils. ABG consistent with acute respiratory acidosis. ROS unobtainable. 04/13: Narcan drip stopped this morning. Drowsy, easily arousable, knows he is in the hospital. Knows it is March 2018. 04-14 no NEED FOR NARCAN 04-15 IS AT HIS BASELINE AWAKE AND ALERT AND ORIENTED X3 WANTS TO GO HOME DW PATIENT NOT DOING ANY MORE DRUGS DC TO HOME TODAY - Time Spent with Patient Total time spent providing and/or coordinating discharge services: Greater than 30 minutes Exam Vital signs: Vital Signs 04/14/18 12:00 04/14/18 12:09 04/14/18 13:00 Temperature 98.3 F Pulse Rate 78 54 L 55 L Respiratory Rate 39 H 26 H 28 H Blood Pressure 134/88 134/88 142/90 H Pulse Oximetry 94 L 98 97 04/14/18 14:00 04/14/18 15:00 04/14/18 16:00 Temperature 98.8 F Pulse Rate 53 L 68 59 L Respiratory Rate 24 27 H 24 Blood Pressure 134/81 135/87 131/72 Pulse Oximetry 97 95 94 L 04/14/18 17:00 04/14/18 18:00 04/14/18 19:00 Temperature Pulse Rate 56 L 53 L 60 Respiratory Rate 23 24 20 Blood Pressure 135/77 120/57 L 136/88 Pulse Oximetry 98 95 95 04/14/18 19:45 04/14/18 20:00 04/14/18 21:00 Temperature 98.8 F Pulse Rate 60 56 L Respiratory Rate 25 H 17 Blood Pressure 137/80 141/91 H Pulse Oximetry 95 97 94 L 04/14/18 22:00 04/14/18 23:00 04/15/18 00:00 Temperature Pulse Rate 52 L 48 L 63 Respiratory Rate 16 15 23 Blood Pressure 136/86 139/91 H 121/59 L Pulse Oximetry 97 96 91 L 04/15/18 00:01 04/15/18 01:00 04/15/18 02:00 Temperature Pulse Rate 68 68 51 L Respiratory Rate 22 28 H 22 Blood Pressure 121/59 L 127/82 125/73 Pulse Oximetry 91 L 94 L 95 04/15/18 03:00 04/15/18 04:00 04/15/18 05:00 Temperature Pulse Rate 56 L 58 L 55 L Respiratory Rate 25 H 22 24 Blood Pressure 132/63 131/71 132/72 Pulse Oximetry 95 96 95 04/15/18 06:00 04/15/18 06:01 04/15/18 07:00 Temperature Pulse Rate 49 L 49 L 80 Respiratory Rate 25 H 24 22 Blood Pressure 132/59 L 120/84 Pulse Oximetry 96 95 95 04/15/18 07:57 04/15/18 08:00 04/15/18 09:00 Temperature 97.8 F Pulse Rate 53 L 57 L Respiratory Rate 24 31 H Blood Pressure 127/60 Pulse Oximetry 94 L 94 L 95 04/15/18 10:00 Temperature Pulse Rate 65 Respiratory Rate 25 H Blood Pressure Pulse Oximetry 94 L Intake & Output 04/14/18 04/15/18 04/15/18 18:59 06:59 18:59 Intake Total 2700 / 2700 1311.2 / 1311.2 Output Total 1900 / 1900 2600 / 2600 Balance 800 / 800 -1288.8 / -1288.8 Weight 86.7 kg Intake: IV 1100 / 1100 511.2 / 511.2 LR 1000 mL Inj 1,000 ML @ 84 1000 / 1000 mls/hr IV.CONT .[id number] [facility] Rx# :[id number] Magnesium Sulfate 1 gm/D5W 100 100 / 100 ml Premix 100 ML @ 100 mls/hr IV.SIG ONCE ONE Rx#:[id number] MVI-12 Inj 10 ML Thiamine Inj 511.2 / 511.2 100 MG Folvite Inj 1 MG In NS Inj 500 ML @ 125 mls/hr IV.SIG Q24H [facility] Rx#:[id number] Oral 1600 / 1600 800 / 800 Output: Urine 1900 / 1900 2600 / 2600 Other: Date of Last Bowel Movement 04/14/18 04/14/18 04/15/18 # Bowel Movements 3 Narrative: GENERAL: Stable in his room, no acute distress. HEENT: Normocephalic. Atraumatic. NECK: Trachea is midline. There is no JVD. CHEST: Bradypneic. equal chest rise. clear. CARDIOVASCULAR: Normal rate, rhythm. Sinus. ABDOMEN: Soft, nontender, nondistended. No guarding. MUSCULOSKELETAL: NO clubbing, cyanosis or edema. NEUROLOGICAL: Alert and oriented x 3, no focal deficits. Awake alert and oriented x3 talkative and cooperative in no acute distress Insight and judgment is good Mood and behavior is appropriate Results Procedures completed during hospitalization: NONE Completed studies during hospitalization: Laboratory Results WBC 9.0 th/mm3 (4.0-11.0) 04/15/18 06:53 RBC 3.75 mil/mm3 (4.50-5.90) L 04/15/18 06:53 Hgb 12.5 gm/dL (13.0-17.0) L 04/15/18 06:53 Hct 36.3 % (39.0-51.0) L 04/15/18 06:53 MCV 96.6 fL (80.0-100.0) 04/15/18 06:53 MCH 33.4 pg (27.0-34.0) 04/15/18 06:53 MCHC 34.6 % (32.0-36.0) 04/15/18 06:53 RDW 15.0 % (11.6-17.2) 04/15/18 06:53 Plt Count 141 th/mm3 (150-450) L 04/15/18 06:53 MPV 9.6 fL (7.0-11.0) 04/15/18 06:53 Prelim Diff (Auto) Slide review pending 04/15/18 06:53 Neut % (Auto) 64.6 % (16.0-70.0) 04/15/18 06:53 Lymph % (Auto) 21.5 % (9.0-44.0) 04/15/18 06:53 [place] % (Auto) 9.0 % (0.0-8.0) H 04/15/18 06:53 Eos % (Auto) 4.5 % (0.0-4.0) H 04/15/18 06:53 Baso % (Auto) 0.4 % (0.0-2.0) 04/15/18 06:53 Neut # (Auto) 5.8 th/mm3 (1.8-7.7) 04/15/18 06:53 Lymph # (Auto) 1.9 th/mm3 (1.0-4.8) 04/15/18 06:53 [place] # (Auto) 0.8 th/mm3 (0.0-0.9) 04/15/18 06:53 Eos # (Auto) 0.4 th/mm3 (0.0-0.4) 04/15/18 06:53 Baso # (Auto) 0.0 th/mm3 (0.0-0.2) 04/15/18 06:53 WBC Differential Manual diff final 04/15/18 06:53 Diff Scan Auto diff confirmed 04/14/18 16:35 Seg Neuts % (Manual) 66 % (16-70) 04/15/18 06:53 Band Neuts % (Manual) 1 % (0-6) 04/15/18 06:53 Lymphocytes % (Manual) 21 % (9-44) 04/15/18 06:53 Monocytes % (Manual) 10 % (0-8) H 04/15/18 06:53 Basophils % (Manual) 1 % (0-2) 04/15/18 06:53 Myelocytes % (Man) 1 % (0-0) H 04/15/18 06:53 Abs Neuts (Manual) 6.1 th/mm3 (1.8-7.7) 04/15/18 06:53 Differential Comment . 04/15/18 06:53 Platelet Estimate Low (Normal) L 04/15/18 06:53 Platelet Morphology Normal (Normal) 04/15/18 06:53 PT 11.2 sec (9.8-11.6) 04/12/18 16:50 INR 1.1 Ratio 04/12/18 16:50 Puncture Site Left radial 04/15/18 05:32 Patient Temperature 98.6 04/15/18 05:32 O2 Saturation 94 % (90-100) 04/15/18 05:32 ABG pH 7.47 (7.380-7.420) H 04/15/18 05:32 ABG pCO2 36 mmHg (38-42) L 04/15/18 05:32 ABG pO2 79 mmHG (61-120) 04/15/18 05:32 ABG HCO3 26 mmol/L (22-26) 04/15/18 05:32 ABG O2 Content 16.5 Vol % (12.0-20.0) 04/15/18 05:32 ABG Base Excess 2.1 mmol/L (-2-2) H 04/15/18 05:32 ABG Methemoglobin 1.5 % (0-2) 04/15/18 05:32 Manuel Test Present 04/15/18 05:32 Hemoglobin 12.5 G/DL (12.0-16.0) 04/15/18 05:32 Carboxyhemoglobin 0.7 % (0-4) 04/15/18 05:32 O2 Delivery Device Nasal cannula 04/12/18 15:37 Liter Flow 4.00 L/M 04/12/18 15:37 Inspired O2 21 % 04/15/18 05:32 Critical Value No 04/15/18 05:32 Sodium 141 meq/L (136-145) 04/14/18 14:10 Potassium 3.7 meq/L (3.5-5.1) 04/14/18 14:10 Chloride 108 meq/L (98-107) H 04/14/18 14:10 Carbon Dioxide 24.9 meq/L (21.0-32.0) 04/14/18 14:10 Anion Gap 8 meq/L (5-15) 04/14/18 14:10 BUN 8 mg/dL (7-18) 04/14/18 14:10 Creatinine 0.70 mg/dL (0.60-1.30) 04/14/18 14:10 Estimated GFR Greater than 89 mL/min (>89) 04/14/18 14:10 Random Glucose 134 mg/dL (74-106) H 04/14/18 14:10 Lactic Acid 0.5 mmol/L (0.4-2.0) 04/12/18 17:12 Calcium 7.6 mg/dL (8.5-10.1) L 04/14/18 14:10 Phosphorus 3.4 mg/dL (2.5-4.9) 04/15/18 06:53 Magnesium 1.9 mg/dL (1.5-2.5) 04/15/18 06:53 Total Bilirubin 0.3 mg/dL (0.2-1.0) 04/12/18 16:50 AST 25 U/L (15-37) 04/12/18 16:50 ALT 18 U/L (12-78) 04/12/18 16:50 Alkaline Phosphatase 80 U/L (45-117) 04/12/18 16:50 Ammonia 27 mcmol/L (11-32) 04/12/18 16:50 Total Creatine Kinase 87 U/L (39-308) 04/12/18 16:50 Total Protein 5.9 g/dL (6.4-8.2) L 04/12/18 16:50 Albumin 2.6 g/dL (3.4-5.0) L 04/12/18 16:50 TSH 0.672 uIU/mL (0.358-3.740) 04/12/18 16:50 Nasal Screen MRSA (PCR) Not detected (Negative) 04/12/18 19:05 Salicylates 3.2 mg/dL (2.8-20.0) 04/12/18 16:50 Acetaminophen Less than 2.0 mcg/mL (10.0-30.0) L 04/12/18 16:50 Serum Alcohol Less than 3 mg/dL (0-5) 04/12/18 16:[address] 04/12/18 15:57 CONCLUSION: 1. Negative CT Head non contrast. . Labs on day of discharge: Labs from last 24 hours 04/15/18 04/15/18 04/15/18 06:53 06:53 05:32 WBC 9.0 RBC 3.75 L Hgb 12.5 L Hct 36.3 L MCV 96.6 MCH 33.4 MCHC 34.6 RDW 15.0 Plt Count 141 L MPV 9.6 Prelim Diff (Auto) Slide review pending Neut % (Auto) 64.6 Lymph % (Auto) 21.5 [place] % (Auto) 9.0 H Eos % (Auto) 4.5 H Baso % (Auto) 0.4 Neut # (Auto) 5.8 Lymph # (Auto) 1.9 [place] # (Auto) 0.8 Eos # (Auto) 0.4 Baso # (Auto) 0.0 WBC Differential Manual diff final Diff Scan Seg Neuts % (Manual) 66 Band Neuts % (Manual) 1 Lymphocytes % (Manual) 21 Monocytes % (Manual) 10 H Basophils % (Manual) 1 Myelocytes % (Man) 1 H Abs Neuts (Manual) 6.1 Differential Comment . Platelet Estimate Low L Platelet Morphology Normal Puncture Site Left radial Patient Temperature 98.6 O2 Saturation 94 ABG pH 7.47 H ABG pCO2 36 L ABG pO2 79 ABG HCO3 26 ABG O2 Content 16.5 ABG Base Excess 2.1 H ABG Methemoglobin 1.5 Manuel Test Present Hemoglobin 12.5 Carboxyhemoglobin 0.7 Inspired O2 21 Critical Value No Sodium Potassium Chloride Carbon Dioxide Anion Gap BUN Creatinine Estimated GFR Random Glucose Calcium Phosphorus 3.4 Magnesium 1.9 04/14/18 04/14/18 16:35 14:10 WBC 8.3 RBC 4.19 L Hgb 14.0 D Hct 41.5 MCV 99.1 MCH 33.5 MCHC 33.8 RDW 15.1 Plt Count 134 L MPV 8.2 Prelim Diff (Auto) Slide review pending Neut % (Auto) 67.6 Lymph % (Auto) 17.5 [place] % (Auto) 11.4 H Eos % (Auto) 2.9 Baso % (Auto) 0.6 Neut # (Auto) 5.6 Lymph # (Auto) 1.5 [place] # (Auto) 0.9 Eos # (Auto) 0.2 Baso # (Auto) 0.1 WBC Differential . Diff Scan Auto diff confirmed Seg Neuts % (Manual) Band Neuts % (Manual) Lymphocytes % (Manual) Monocytes % (Manual) Basophils % (Manual) Myelocytes % (Man) Abs Neuts (Manual) Differential Comment . Platelet Estimate Low L Platelet Morphology Normal Puncture Site Patient Temperature O2 Saturation ABG pH ABG pCO2 ABG pO2 ABG HCO3 ABG O2 Content ABG Base Excess ABG Methemoglobin Manuel Test Hemoglobin Carboxyhemoglobin Inspired O2 Critical Value Sodium 141 Potassium 3.7 Chloride 108 H Carbon Dioxide 24.9 Anion Gap 8 BUN 8 Creatinine 0.70 Estimated GFR Greater than 89 Random Glucose 134 H Calcium 7.6 L Phosphorus 2.5 Magnesium 1.7 - Impressions ITS Impressions Head CT 04/12/18 15:57 CONCLUSION: 1. Negative CT Head non contrast. . Discharge Plan - Discharge Disposition Patient Disposition: 01 Discharge Home - Discharge Condition Condition: Good - Discharge Order Discharge Orders: Discharge Order (Routine); Ordered 04/15/18 Ordered By: El Mg - Discharge Details Anticipated Discharge Date: 04/15/18 Discharge Comment: DC TO HOME - Physicians Team Primary Care Provider: Primary Care Enid Infante Attending Provider: El Mg
[2018-04-15 12:53] VITALS: BP 127/63; PULSE 73; RESP 29; TEMP 98; O2SAT 93
== END 2018-04-15 12:45 | disposition home or self-care (01) ==
LOC: NEPE 13:09 → NEDA 16:55 → HIMC 18:25
PROVIDERS: ADMIT Hospitalist; ATTEND Hospitalist